=== PATIENT | female | born 1985 | race Caucasian/White ===

== ENCOUNTER 2020-01-02 18:42 | Emergency (ER) | payer OTHER ==
[~2020-01-02] VITALS: Ht 160 cm; Wt 89.1 kg
[2020-01-02] MEDS ORDERED: PEPC1TAB5 PO (18:47)
[2020-01-02] MEDS ORDERED: SERT-141 PO (18:47)
[2020-01-02] MEDS ORDERED: MULTCAP PO (18:47)
[2020-01-02 19:27] LABS: BASO % 0.4 % (0.0-1.0); EOS # 0.1 10^3/uL (0.0-0.5); EOS % 0.7 % (0.0-3.0); HEMATOCRIT 41.7 % (36.0-47.0); HEMOGLOBIN 14.1 g/dl (12.0-15.5); LYMPH # 2.9 10^3/uL (1.5-5.0); LYMPH % 26.2 % (24.0-44.0); MEAN CORPUSCULAR HEMOGLOBIN 28.8 pg (27.0-33.0); MEAN CORPUSCULAR HGB CONC 33.8 g/dl (32.0-36.5); MEAN CORPUSCULAR VOLUME 85.3 fl (80.0-96.0); MONO # 0.7 10^3/uL (0.0-0.8); MONO % 6.6 % (0.0-5.0); NEUTROPHILS # 7.4 10^3/uL (1.5-8.5); NEUTROPHILS % 65.8 % (36.0-66.0); PLATELET COUNT, AUTOMATED 301 10^3/uL (150-450); RED BLOOD COUNT 4.89 10^6/uL (4.00-5.40); WHITE BLOOD COUNT 11.2 10^3/uL (4.0-10.0)
[2020-01-02] MEDS ORDERED: PANTOPRAZOLE 40MG INJ (PROTONIX) (C9113) IV ONE (19:30)
[2020-01-02] MEDS ORDERED: NS 1,000 ML IV ONE (19:30)
[2020-01-02] MEDS ORDERED: KETOROLAC 30 MG/ML VIAL (J1885) IV ONE (19:30)
[2020-01-02 19:51] LABS: ALBUMIN 4.3 GM/DL (3.2-5.2); ALT/SGPT 18 U/L (12-78); AMYLASE 76 U/L (25-115); BILIRUBIN,DIRECT < 0.1 MG/DL (0.0-0.2); BILIRUBIN,TOTAL 0.4 MG/DL (0.2-1.0); LIPASE 121 U/L (73-393); TOTAL PROTEIN 8.2 GM/DL (6.4-8.2)
--- NOTE | 2020-01-02 19:55 | REPVR ---
PROCEDURE INFORMATION: Exam: US Abdomen Limited, Right Upper Quadrant Exam date and time: 01/02/2020 7:37 PM Age: 34 years old Clinical indication: Abdominal pain; Epigastric; Additional info: Ruq pain TECHNIQUE: Imaging protocol: Real-time ultrasound of the abdomen with image documentation. Examination was focused on the right upper quadrant. COMPARISON: No relevant prior studies available. FINDINGS: Liver: Mild increased echogenicity of the liver representing fatty infiltration. Liver measures 16.2 cm. Gallbladder: Negative sonographic Valentin sign. Multiple gallbladder calculi. Gallbladder wall thickness measures 3 mm. No pericholecystic fluid. Common bile duct: The bile duct measures 5 mm. Pancreas: Visualized pancreas is unremarkable. Right kidney: Right kidney measures 12 x 5 x 6 cm. IMPRESSION: Hepatic steatosis. Cholelithiasis without evidence for acute cholecystitis. Electronically signed by: Taras Uribe On 01/02/2020 19:55:25 PM
[2020-01-02] MEDS ORDERED: TRAM50TA2 PO (20:12)
[2020-01-02] MEDS ORDERED: ZOFR4TAB16 PO (20:12)
[2020-01-02] MEDS ORDERED: PRIL20TA2 PO (20:12)
[2020-01-02 20:17] VITALS: BP 122/79
== END 2020-01-02 20:26 | disposition home or self-care (01) ==
LOC: M ED 18:42
DX: R10.11 Right upper quadrant pain (principal); E11.9 Type 2 diabetes mellitus without complications; Z79.899 Other long term (current) drug therapy
CPT/HCPCS: 36415; 76705; 80047; 80076; 82150; 83690; 85025; 96361; 96374; 96375; 99284; C9113; J1885